=== PATIENT | female | born 1955 ===

== ENCOUNTER 2018-09-01 00:51 | Inpatient (IN) | payer OTHER ==
[2018-08-31 12:40] LABS: INR 0.98
--- NOTE | 2018-08-31 18:09 | RADIOLOGY IMAGING REPORT ---
FACILITY: [facility] PATIENT NAME: Mayra Alexander : 1955 MR: [id number] V: [id number] EXAM DATE: ORDERING PHYSICIAN: SOHAN MAGDALENO TECHNOLOGIST: [place] [facility] [place] : 1955 Visit/Account:[id number] Date of Sevice: 08/31/2018 Study: LEGS BILAT STANDING HIPS-ANKLE Indication: Preop Comparison study: None available Findings: Standing views of the lower extremities demonstrates that the patient is status post right total knee replacement. As measured from the top of the right femoral head to the right tibial plafon d, the distance equals 81.0 cm. The distance from the top of the left femoral head to the left tibial plafond is 82.0 cm. There is no evidence of acute bony abnormality. IMPRESSION: Films of the lower extremities with the patient standing demonstrates no evidence of acut e bony abnormality. The limb lengths are measured above. Report Dictated By: Bill Noyola at 08/31/2018 5:59 PM Report E-Signed By: Bill Noyola at 08/31/2018 6:04 PM WSN:[id number]
[2018-09-01] VITALS (10 sets, daily range): BP systolic 116–174; BP diastolic 31–98
[~2018-09-01] VITALS: Ht 165.1 cm; Wt 100.5 kg
[~2018-09-01 00:51] MED LIST: ASPI-1471 PO; ASPI-764 PO; CALC-854 PO; DOCU100T19 PO; HYDR12.561 PO; IBUP400T13 PO; LEVO-3 PO; LISI20TA29 PO; MELO-205 PO; OMEP-125 PO; OXYC-823 PO; OXYC-865 PO; POLY17PO25 PO; TELM80TA4 PO; TRAM-420 PO
[2018-09-01] MEDS ORDERED: ROPIVACAINE/EPI/CLONIDINE/KET 50 ML SYRINGE INJ ONE (11:00)
[2018-09-01] MEDS ORDERED: TRANEXAMIC AC 1000 MG/10ML SDV 1,000 MG in DEXTROSE 5% 50 ML BAG 50 ML IV ONE (11:00)
[2018-09-01] MEDS ORDERED: CELECOXIB 200 MG CAP PO ONE (11:30)
[2018-09-01] MEDS ORDERED: PREGABALIN 150 MG CAPSULE PO ONE (11:30)
[2018-09-01] MEDS ORDERED: FAMOTIDINE 20 MG TAB PO ONE (11:30)
[2018-09-01] MEDS ORDERED: MIDAZOLAM 2 MG/2 ML VIAL IVP PRN (11:30)
[2018-09-01] MEDS ORDERED: ACETAMINOPHEN 500 MG TAB PO ONE (11:30)
[2018-09-01] MEDS ORDERED: LIDOCAINE/SOD BICARB 8.4% SYR ID ONE (11:30)
[2018-09-01] MEDS ORDERED: NORMOSOL R SOLN(*) 1000 ML BAG 1,000 ML IV PRN (11:30)
[2018-09-01] MEDS ORDERED: VANCOMYCIN(*) 1 GM VIAL 1 GM, VANCOMYCIN (*) 0.5 GM VIAL 0.5 GM in NS(*) 0.9% 250 ML BA... IVPB ONE (11:59)
[2018-09-01] MEDS ORDERED: ceFAZolin(*) 2GM/D5W 50ML 50 ML IVPB ONE (12:30)
[2018-09-01] MEDS ORDERED: KCL/D5LR 20 MEQ/1000 ML PREMIX 1,000 ML IV PRN (16:10)
[2018-09-01] MEDS ORDERED: MORPHINE 50 MG/50 ML PCA BAG IV PRN (16:10)
[2018-09-01] MEDS ORDERED: ACETAMINOPHEN 500 MG TAB PO PRN (16:10)
[2018-09-01] MEDS ORDERED: FLUSH 10 ML SYR IVP PRN (16:10)
[2018-09-01] MEDS ORDERED: diphenhydrAMINE 25 MG CAP PO PRN (16:10)
[2018-09-01] MEDS ORDERED: ONDANSETRON 4 MG/2 ML VIAL IVP PRN (16:10)
[2018-09-01] MEDS ORDERED: NALOXONE HCL 0.4 MG/ML VIAL IVP PRN (16:10)
[2018-09-01] MEDS ORDERED: PROMETHAZINE 25 MG/ML 1 ML AMP IVP PRN (16:10)
[2018-09-01] MEDS ORDERED: MAGNESIUM CITRATE 300 ML BTL PO PRN (16:10)
--- NOTE | 2018-09-01 16:56 | OPERATIVE REPORT 1 ---
EVENT DATE: September 01, 2018 SURGEON: David Alex MD ANESTHESIOLOGIST: Michael Multani MD ANESTHESIA: Adductor canal block with spinal and general anesthetic. (The patient had reported substantial discomfort despite standard analgesic techniques on her last total knee arthroplasty and, therefore, we attempted to correct that problem.) SPECIALTY DEPARTMENT SUPERVISOR: BURNO Grider PREOPERATIVE DIAGNOSIS Left knee degenerative joint disease. POSTOPERATIVE DIAGNOSIS Left knee degenerative joint disease. PROCEDURE PERFORMED Left total knee arthroplasty. INTRAVENOUS FLUIDS Crystalloid 1800 and no colloid. ESTIMATED BLOOD LOSS 50. TOURNIQUET TIME 16 minutes. SPECIMENS No specimens. COMPLICATIONS No complications. IMPLANTS USED DePuy Attune, a 5 narrow PS with a 5 rotating platform tibial component, a 29 anatomic patella, and a size 5 x 6 mm insert PS rotating platform, all cemented. SUMMARY OF PROCEDURE The patient was brought into the operating room. She was given her two blocks and then a general anesthetic. The left lower extremity was prepped and draped in the usual sterile fashion. The last time we had done her surgery because of her large thigh, we were not able to get adequate bleeding control because she developed a venous tourniquet, and so we ended doing the case without a tourniquet, and so we just started this one the same way. Anterior utilitarian incision was made, deepened through skin and subcutaneous tissue. Unipolar cautery was used for hemostasis as necessary. A medial parapatellar incision followed. The fluid was clear. We did a little bit of medial recession, but not a lot because her main issue was actually patellofemoral with only a bit of arthritic change on the medial and lateral compartments. Based on the long- plate films, we then prepared to cut at 7 and remove 9 from the end. She had a flexion contracture, but it looked like it was probably mainly soft tissue. The intramedullary tayo was placed, followed by the cutting guide, and we removed 9 mm from the end of the femur. We then measured for the size, which was 5, and we cut at 3 degrees external rotation and made our chamfer cuts. She had a rather unusual distal femur wherein the anterior extension of the femoral condyle was extremely minimal, and therefore, it was essentially just a flat cut right to the anterior cortex with only a little bit of bone removal. Posteriorly, it was more normal. It looked like it would end up being a 5 narrow. We did the box cut, followed by the lug holes for the femoral component. It seemed like we had a good fit, and then we did confirm that it would be a 5. We then checked for the tibia. Looking at the level of the cut, we removed cartilage from the medial side and then measured how she would be with 2 mm off the medial side, but it was not quite 9 off the lateral side, so we dropped it one additional millimeter and then made our cut. No additional drilling would be necessary. We checked both a 4 and a 5. It looked like the 5 fit best and, therefore, we prepared for the 5 and then trialed. She tracked well and had good extension. Her patella was quite difficult because it was extremely eroded. We measured only at 20, so we used the darron, and we ended up leaving her with a 13. We then proceeded to drill for a 29 anatomic patella and trialed all components. They fit well and tracked well. The wound was irrigated. We placed Irrisept. We also used the osteotome to free up the posterior condylar region and to remove any osteophytes at the posterior side and free up the capsule posteriorly. She had an odd band of tissue on the posteromedial side which actually looked a little bit like the popliteus, except about twice as thick. We left that intact. It looked like an anatomic variant. We removed implants, placed bone blocks distally and proximally at the femur and tibia respectively, checked for cysts and found none, mixed cement, and then proceeded to implant starting with the tibia, then the femur, and then patella. Prior to doing this, we did exsanguinate her leg and just left it up for 16 minutes as noted in the header of this procedure. Excess cement was removed. We held her locked and loaded in compression until full polymerization, and then after a bit more trialing, selected a final 6 mm insert and implanted that. We did Irrisept one more time, irrigated a final time, and then started closing the fascia with #1 Vicryl, then the subcutaneous tissue with superficial Vicryl, followed by Monocryl for the subcuticular closure, and then a Dermabond strip. She was given a dry, sterile dressing. She was awakened and transferred to the recovery area in stable condition. ZANA
--- NOTE | 2018-09-01 18:06 | RADIOLOGY IMAGING REPORT ---
FACILITY: [facility] - [place] PATIENT NAME: Mayra Alexander : 1955 MR: [id number] V: [id number] EXAM DATE: ORDERING PHYSICIAN: SOHAN MAGDALENO TECHNOLOGIST: Location: [facility] - [place] Patient: Mayra Alexander : 1955 Visit/Account:[id number] Date of Sevice: 09/01/2018 KNEE LIMITED LEFT History: Left knee pain. Status post recent joint prosthesis placement. Comparison study: August 31, 2018. Findings: Comparison to the previous study shows that there has been recent placement of a left tota l knee prosthesis. Subcutaneous subcutaneous and intra-articular air and fluid are related to recent surgery. There is no finding of a fracture. IMPRESSION: 1. Status post recent left total knee replacement with postoperative changes of air and fluid in the subcutaneous tissues and joint space. No findings of a fracture. Report Dictated By: Oliver Sanchez MD at 09/01/2018 5:59 PM Report E-Signed By: Oliver Sanchez MD at 09/01/2018 6:01 PM WSN:[id number]
--- NOTE | 2018-09-01 18:11 | Hospitalist Progress Note ---
Subjective Progress Notes Subjective Patient seen post-op. Reviewed PMHx (HTN, hypothyroidism, CRISTHIAN on CPAP) and medications (HCTZ, telmisartan, L-thyroxine). At present she reports doing fairly well with good pain control. No N/V/CP/SOB. Physical Exam Vital Signs Date Time Temp Pulse Resp B/P (MAP) Pulse Ox O2 Delivery O2 Flow Rate FiO2 09/01/18 17:35 97.5 52 16 154/92 (112) 96 Nasal Cannula 1.5 General Appearance: Alert, Awake Cardiovascular: Regular Rate and Rhythm Respiratory: Clear to Auscultation Result Diagram: 09/01/18 1608 Assessment and Plan Problems: (1) Status post left knee replacement Status: Acute Assessment & Plan: She appears to have tolerated OR/anesthesia fairly well. She has no history of bleeding or clotting problems. She will be on aspirin 325mg daily (x 5 weeks) for DVT prophylaxis as per Dr. Alex. (2) CRISTHIAN on CPAP Status: Chronic Assessment & Plan: Will continue with her auto CPAP. (3) HTN (hypertension) Status: Chronic Assessment & Plan: Will monitor BPs and resume her telmisartan and HCTZ as needed. (4) Hypothyroid Status: Chronic Assessment & Plan: Continue L-thyroxine 125mcg PO daily. (5) History of prolonged Q-T interval on ECG Status: Chronic Assessment & Plan: Her pre-op EKG showed normal QTc interval. Will avoid any p otential QT prolonging medications. CHRISTI BURGESS MD September 01, 2018 18:11
[2018-09-02] VITALS: BP 109/65
[2018-09-02 01:00] VITALS: BP 106/56
[2018-09-02 04:40] VITALS: BP 144/79
[2018-09-02] MEDS: oxyCODON/ACET (*)5/325MG (CII) 1 TAB TAB PO PRN ×5 (04:54→22:02)
[2018-09-02] MEDS: LEVOTHYROXINE SOD 0.125 MG TAB PO SCH (05:36)
[2018-09-02 05:53] LABS: PLATELET COUNT, AUTOMATED 279 K/uL (150-450)
--- NOTE | 2018-09-02 06:08 | Hospitalist Progress Note ---
Subjective Progress Notes Subjective She reports doing well. No CP/SOB/nausea. Physical Exam Vital Signs Date Time Temp Pulse Resp B/P (MAP) Pulse Ox O2 Delivery O2 Flow Rate FiO2 09/02/18 04:40 97.5 48 18 144/79 (100) 93 Nasal Cannula 1.0 Intake and Output 09/02/18 07:00 Intake Total 2630 ml Output Total 50 ml Balance 2580 ml Intake Oral 830 ml IV Total 1700 ml Other 100 ml Output Estimated Blood Loss 50 ml # Voids 2 General Appearance: Alert, Awake Cardiovascular: Regular Rate and Rhythm Respiratory: Clear to Auscultation Result Diagram: 09/02/18 0507 Assessment and Plan Problems: (1) Status post left knee replacement Status: Acute Assessment & Plan: She appears to be doing fairly well. She has no history of bleeding or clotting problems. She will be on aspirin 325mg daily (x 5 weeks) for DVT prophylaxis as per Dr. Alex. (2) CRISTHIAN on CPAP Status: Chronic Assessment & Plan: Will continue with her auto CPAP. (3) HTN (hypertension) Status: Chronic Assessment & Plan: Will monitor BPs and resume her telmisartan and HCTZ as needed. (4) Hypothyroid Status: Chronic Assessment & Plan: Continue L-thyroxine 125mcg PO daily. (5) History of prolonged Q-T interval on ECG Status: Chronic Assessment & Plan: Her pre-op EKG this time showed normal QTc interval. Will avoid any potential QT prolonging medications. Exam Sepsis Risk: No Definite Risk CHRISTI BURGESS MD September 02, 2018 06:08
[2018-09-02 07:11] VITALS: BP 112/62
[2018-09-02] MEDS: PATIENT'S OWN MED PO SCH (08:50)
[2018-09-02] MEDS: HYDROCHLOROTHIAZIDE 25 MG TAB PO SCH (08:50)
[2018-09-02] MEDS: ASPIRIN 325 MG TAB PO SCH (08:53)
--- NOTE | 2018-09-02 09:24 | NUR ---
Physical Therapy Impression PT eval complete. Pt agreeable to therapy session. Domenica for bed mobility,CGA for STS transfer. Ambulation x80' with RW, with PT cues for proximity to walker with ambulation. Pt reports lightheadedness with ambulation, but with good tolerance overall. SpO2 and BP WNL on room air. Physical Therapy Goals 1: Pt to complete bed mobility with Domenica 2: Pt to complete transfers with SBA and RW 3: Pt to ambulate 150' with SBA and RW 4: Pt to asc/desc 4 stairs with railing and SBA 5: Pt to be I) with use of CPM Patient's Goals
[2018-09-02] MEDS: FAMOTIDINE 20 MG TAB PO SCH ×2 (10:00→22:02)
[2018-09-02 13:35] VITALS: BP 113/70
--- NOTE | 2018-09-02 14:00 | NUR ---
Physical Therapy Impression Pt progressing well with functional mobility. Domenica for bed mobility, SBA for transfers and ambulation x120' with RW. Pt reporting lightheadedness with ambulation, requesting to sit. Chair was retrieved and pt transferred to chair and was put into supine position. Back in room, BP was 107/53, improved sx when supine. With return to bed, BP returned to 124/67, pt asymptomatic. SpO2 85% on room air at end of session, 1L O2 donned and SpO2 returned to WNL. ENcouraged pt to mobilize with nursing staff this PM. Plan to address stair training in AM Physical Therapy Goals 1: Pt to complete bed mobility with Domenica 2: Pt to complete transfers with SBA and RW 3: Pt to ambulate 150' with SBA and RW 4: Pt to asc/desc 4 stairs with railing and SBA 5: Pt to be I) with use of CPM Patient's Goals
[2018-09-02 18:52] VITALS: BP 115/74
[2018-09-03 02:00] VITALS: BP 107/55
[2018-09-03] MEDS: oxyCODON/ACET (*)5/325MG (CII) 1 TAB TAB PO PRN ×3 (02:17→13:53)
[2018-09-03 05:43] LABS: PLATELET COUNT, AUTOMATED 213 K/uL (150-450)
[2018-09-03] MEDS: LEVOTHYROXINE SOD 0.125 MG TAB PO SCH (05:52)
[2018-09-03 07:31] VITALS: BP 117/71
[2018-09-03] MEDS ORDERED: ASPI-757 PO (07:45)
--- NOTE | 2018-09-03 07:48 | Hospitalist Progress Note ---
Subjective Progress Notes Subjective No cp/sob. Physical Exam Vital Signs Date Time Temp Pulse Resp B/P (MAP) Pulse Ox O2 Delivery O2 Flow Rate FiO2 09/03/18 07:31 97.9 52 14 117/71 (86) 89 Nasal Cannula 0.5 Intake and Output 09/03/18 07:00 Intake Total 1930 ml Balance 1930 ml Intake Oral 1930 ml # Voids 5 # Bowel Movements 2 General Appearance: Alert, Awake, No Acute Distress Result Diagram: 09/03/18 0514 09/03/18513 Assessment and Plan Problems: (1) Status post left knee replacement Status: Acute Assessment & Plan: She appears to be doing fairly well. She has no history of bleeding or clotting problems. She will be on aspirin 325mg daily (x 5 weeks) for DVT prophylaxis as per Dr. Alex. (2) Hypoxia Status: Acute Assessment & Plan: Secondary to altitude, recent surgery and narcotic use. If she goes home on O2, she needs to follow up at her PCP's office with a copy of cosme landa's Hospitalist note to see if she still needs supplemental O2 (3) CRISTHIAN on CPAP Status: Chronic Assessment & Plan: Will continue with her auto CPAP. (4) HTN (hypertension) Status: Chronic Assessment & Plan: Will monitor BPs and resume her telmisartan and HCTZ in 2 d ays (5) Hypothyroid Status: Chronic Assessment & Plan: Continue L-thyroxine 125mcg PO daily. (6) History of prolonged Q-T interval on ECG Status: Chronic Assessment & Plan: Her pre-op EKG this time showed normal QTc interval. Will avoid any potential QT prolonging medications. Exam Sepsis Risk: No Definite Risk AMERICA PEMBERTON MD September 03, 2018 07:48
[2018-09-03] MEDS: ASPIRIN 325 MG TAB PO SCH (08:19)
[2018-09-03] MEDS: PATIENT'S OWN MED PO SCH (08:19)
[2018-09-03] MEDS: FAMOTIDINE 20 MG TAB PO SCH (08:19)
[2018-09-03] MEDS: HYDROCHLOROTHIAZIDE 25 MG TAB PO SCH (08:20)
--- NOTE | 2018-09-03 09:01 | NUR ---
Physical Therapy Impression Pt completed bed mobility with Domenica. When sitting at EOB, pt reports nausea and lightheadedness, BP was 123/78, SpO2 dropped to 77% on room air, O2 donned and SPO2 returned to WNL on 1L O2. Pt is SBA for transfers and ambulation with RW. PT instructed pt in stair negotiation with L) railing and SPC. Pt completed 2x4 stairs with CGA and excellent tolerance. Once back in room, pt continued to report nausea and lightheadedness. BP was 111/81 and SpO2 WNL. BP returned to 132/61 after pt was resting in bed. RN notified. Pt is safe to d/c home from a mobility standpoint as long as she improves medically with regards to nausea and lightheadedness. Pt with d/c with OP PT services. Physical Therapy Goals 1: Pt to complete bed mobility with Domenica 2: Pt to complete transfers with SBA and RW 3: Pt to ambulate 150' with SBA and RW 4: Pt to asc/desc 4 stairs with railing and SBA 5: Pt to be I) with use of CPM Patient's Goals
[2018-09-03 10:07] VITALS: Ht 165.1 cm; Wt 100.5 kg
[2018-09-03] MEDS ORDERED: OXYC-823 PO (14:06)
[2018-09-03] MEDS ORDERED: OXYC5TAB38 PO (14:06)
== END 2018-09-03 14:15 | disposition home or self-care (01) | DRG 470 ==
LOC: OR 00:51 → MED 17:25
PROVIDERS: ADMIT Orthopaedic Surgery Hand Surgery; ATTEND Orthopaedic Surgery Hand Surgery
PROC: 0SRD0J9 Replacement of Left Knee Joint with Synthetic Substitute, Cemented, Open Approach (ICD-10-PCS; principal; 2018-09-01 13:28)
PROC: 5A09357 Assistance with Respiratory Ventilation, Less than 24 Consecutive Hours, Continuous Positive Airway Pressure (ICD-10-PCS; 2018-09-01 13:28)
DX: M16.12 Unilateral primary osteoarthritis, left hip (principal); G47.33 Obstructive sleep apnea (adult) (pediatric); I10 Essential (primary) hypertension; K21.9 Gastro-esophageal reflux disease without esophagitis; E03.9 Hypothyroidism, unspecified; T70.29XA Other effects of high altitude, initial encounter; R09.02 Hypoxemia; T40.605A Adverse effect of unspecified narcotics, initial encounter; Y83.8 Other surgical procedures as the cause of abnormal reaction of the patient, or of later complication, without mention of misadventure at the time of the procedure; Y79.3 Surgical instruments, materials and orthopedic devices (including sutures) associated with adverse incidents; Y92.230 Patient room in hospital as the place of occurrence of the external cause; Z90.710 Acquired absence of both cervix and uterus
CPT/HCPCS: 36415; 76942; 77073; 82310; 82374; 82435; 82565; 82947; 84132; 84295; 84520; 85014; 85018; 85025; 85610; 86850; 86900; 86901; 97161; C1713; C1776; J2250; J3370; J7050; J7060